=== PATIENT | female | born 1950 | race Caucasian/White ===

== ENCOUNTER 2021-11-30 07:56 | Outpatient (RCR) | payer MEDICARE, SELFPAY ==
--- NOTE | ~2021-11-30 | XR_ITS ---
EXAMINATION: XR FOOT, RIGHT CLINICAL INFORMATION: Right toe wound 05/26. COMPARISON: No previous available for comparison TECHNIQUE: AP, lateral, and oblique views of the right foot. FINDINGS: There is no visible acute fracture, dislocation subluxation. There is complete erosion of phalangeal tuft second digit with moderate soft tissue swelling but no gas seen. Rest of the digits are unremarkable. There is a small calcaneal heel enthesophyte. The ankle mortise and subtalar joints are normal. There is mild dorsal midfoot soft tissue swelling. XR/XR foot RT min 3V IMPRESSION: Complete erosion of the phalangeal tuft second digit suggestive of osteomyelitis. There is soft tissue edema. No gas is visualized.
== END 2021-12-07 15:00 | disposition home or self-care (01) ==
LOC: HO.WCC 07:56
PROVIDERS: PCP Internal Medicine; Visit Provider Surgery
DX: E11.621 Type 2 diabetes mellitus with foot ulcer (principal); L97.511 Non-pressure chronic ulcer of other part of right foot limited to breakdown of skin; E11.69 Type 2 diabetes mellitus with other specified complication; M86.071 Acute hematogenous osteomyelitis, right ankle and foot; K50.90 Crohn's disease, unspecified, without complications; Z79.84 Long term (current) use of oral hypoglycemic drugs; Z79.4 Long term (current) use of insulin; Z79.2 Long term (current) use of antibiotics; Z79.899 Other long term (current) drug therapy
CPT/HCPCS: 73630; 99212; 99213

== ENCOUNTER → 2021-12-20 13:08 | Outpatient (BNVA) | payer MEDICARE, SELFPAY | PROVIDERS: PCP Internal Medicine; Visit Provider Internal Medicine | DX: M86.9 Osteomyelitis, unspecified (principal); E11.9 Type 2 diabetes mellitus without complications | CPT/HCPCS: 99202 ==